=== PATIENT | female | born 2005 | race Caucasian/White ===

== ENCOUNTER 2025-06-24 12:50 | Outpatient (REF) | payer MEDICARE, MEDICAID, SELFPAY ==
[2025-06-25 12:00] LABS: Resp Syncy Virus RNA Qual PCR NEGATIVE (Negative); SARS COV2 PCR INHOUSE NEGATIVE (Negative)
== END 2025-06-24 12:51 ==
LOC: HO.LNP 12:50
PROVIDERS: Physician Assistant Medical; Visit Provider Nurse Practitioner Family
DX: J06.9 Acute upper respiratory infection, unspecified (principal); L71.9 Rosacea, unspecified; R09.89 Other specified symptoms and signs involving the circulatory and respiratory systems
CPT/HCPCS: 87637; 99212

== ENCOUNTER 2025-06-24 14:43 | Outpatient (AMB) | payer MEDICARE, MEDICAID, SELFPAY ==
[2025-06-24 16:03] VITALS: BP 100/60; PULSE 53; TEMP 37.4; O2SAT 100
--- NOTE | 2025-06-24 16:03 | MHC.OFFWIV ---
Intake Vital Signs 06/24/25 16:03 Weight 116 lb BP 100/60 Blood Pressure Location Lt brachial Position Sitting Pulse 53 Pulse Source Pulse Oximeter Temp 99.3 F Pulse Oximetry (%) 100 Oxygen Delivery Method Room Air Intake Visit Reasons: EP Fever, congestion Intake Note: pt presents with chest congestion and coughing with fevers for a couple days Allergies No Known Allergies Allergy (Verified 06/24/25 16:16) Do you need a note to return to daycare/school/sports/work: No HPI HPI Comments History of Present Illness Details 20-year-old female patient presents to the walk-in clinic with complaints of upper respiratory symptoms for the past couple of days. Patient has a history of Down syndrome and resides in a [place] [facility]. She is accompanied by her mother and [place] [facility] staff. Patient reports chest congestion/pressure, cough, and subjective fevers. Denies shortness of breath, wheezing, sore throat, nausea, vomiting, or diarrhea. Patient has not taken any OTC medications. Patient also reports a facial rash present for the past few days. Rash is described as red and located along the borders of the nose. Denies itching, pain, drainage, or recent new skincare products. [facility] Medical History (Updated 06/24/25 @ 16:58 by Teagan Whittaker NP) Rosacea Acute respiratory disease Review of Systems Const All systems reviewed & are unremarkable except as noted in HPI and below Physical Exam Vital Signs: Last Vital Signs Temp 99.3 F 06/24/25 16:03 Pulse 53 06/24/25 16:03 BP 100/60 06/24/25 16:03 Pulse Ox 100 06/24/25 16:03 Oxygen Delivery Method Room Air 06/24/25 16:03 Const General: no acute distress; No comfortable Nutritional Appearance: obese Limitations: behavioral limitations HEENT Head: Yes normocephalic Ears: external ears normal and TM abnormal bulging bilateral and with fluid behind the TM bilateral General nose exam: Nasal discharge present Face and sinus: Yes sinus tenderness Mouth: moist mucous membranes Throat: Yes uvula midline Resp Effort & Inspection: normal respiratory effort, able to speak in complete sentences, no audible wheezes and no cough Auscultation: clear to auscultation bilaterally, no crackles, no rales, no rhonchi and no wheezes Cardio Heart sounds: S1 normal heart sound present and S2 normal heart sound present Skin Other: Localized erythematous rash to nasal borders; skin otherwise intact. Assessment & Plan Assessment & Plan (1) Acute respiratory disease: Code(s): J06.9 - Acute upper respiratory infection, unspecified Plan: Ordered SARs. Supportive care for URI: encourage rest, fluids, and good hydration May use OTC acetaminophen or ibuprofen for fever or discomfort as needed Recommend OTC cough suppressant/expectorant as appropriate Educated patient, mother, and group staff on signs of worsening symptoms including persistent fever, shortness of breath, or worsening cough (2) Rosacea: Code(s): L71.9 - Rosacea, unspecified Plan: Recommended gentle cleansing, avoid irritants, and trial of topical emollient. Ordered Metrogel 1% BID Follow up with PCP if symptoms persist or worsen Return precautions reviewed and understood Medications: New metronidazole 1% (Metrogel) 1 appl topical BID 60 grams 0RF L71.9 - Rosacea, unspecified acetaminophen 1,000 mg (2 x 500 mg) PO Q6H 30 caps 0RF pain J06.9 - Acute upper respiratory infection, unspecified Coding Level of Care Code Est Pt Level 4 (88287) Diagnoses Acute respiratory disease J06.9 Rosacea L71.9 Time Spent (min) 20
== END 2025-06-24 16:57 | disposition home or self-care (01) ==
PROVIDERS: Visit Provider Nurse Practitioner Family
DX: J06.9 Acute upper respiratory infection, unspecified (principal); L71.9 Rosacea, unspecified